=== PATIENT | male | born 1950 | race Hispanic/Latino ===

== ENCOUNTER → 2020-08-10 | Outpatient (CLI) | payer OTHER ==
[~2020-08-10] MED LIST: AEC81 PO; FURO20TA6 PO; GABA-529 PO; HYDR-4068 PO; LISI-617 PO; METF-446 PO; METO25 PO; PRAV40TA3 PO; RIVA20TA PO; SERT25TA5 PO; TYL3 PO
== END | disposition home or self-care (01) ==
LOC: SHCH 11:04
PROVIDERS: ATTEND Internal Medicine Cardiovascular Disease
DX: M79.606 Pain in leg, unspecified (principal)
CPT/HCPCS: 93922

== ENCOUNTER 2023-12-18 05:46 | Observation (INO) | payer MEDICARE ==
[2023-12-14 15:44] LABS: BASOPHILS # (AUTO) 0.06 K/uL (0.00-0.20); BASOPHILS % (AUTO) 0.7 % (0.0-5.0); EOSINOPHILS # (AUTO) 0.29 K/uL (0.00-0.70); EOSINOPHILS % (AUTO) 3.5 % (0.0-8.0); HEMATOCRIT 44.5 % (42-54); IMMATURE GRANULOCYTE ABSOLUTE 0.03 K/uL (0-1); LYMPHOCYTES # (AUTO) 2.4 K/uL (1.0-4.8); LYMPHOCYTES % (AUTO) 28.4 % (21.0-51.0); MEAN CORPUSCULAR HEMOGLOBIN 30.7 pg (27.0-33.0); MEAN CORPUSCULAR HGB CONC 31.9 g/dL (32.0-36.0); MEAN CORPUSCULAR VOLUME 96.1 fL (79-99); MONOCYTES # (AUTO) 0.8 K/uL (0.1-1.0); MONOCYTES % (AUTO) 9.5 % (3.0-13.0); NEUTROPHILS # (AUTO) 4.8 K/uL (1.8-7.7); NEUTROPHILS % (AUTO) 57.5 % (40.0-77.0); PLATELET COUNT (AUTO) 287 K/uL (130-400); RED BLOOD CELL COUNT(AUTO) 4.63 MIL/uL (4.50-6.20); RED CELL DISTRIBUTION WIDTH 14.5 % (11.0-15.5); WHITE BLOOD COUNT (AUTO) 8.4 K/uL (4.8-10.8)
[2023-12-14 15:52] LABS: CREATININE 0.8 mg/dL (0.5-1.5); POTASSIUM 4.4 mmol/L (3.5-5.1)
[2023-12-14 15:53] LABS: INR 0.96 (0.85-1.15); PROTHROMBIN TIME 11.2 SEC (9.6-11.6)
[2023-12-14 15:54] LABS: PARTIAL THROMBOPLASTIN TIME 31.2 SEC (26.3-35.5)
[2023-12-14 17:07] LABS: B-TYPE NATRIURETIC PEPTIDE 51 pg/mL (0-100)
[2023-12-14 17:24] LABS: APPEARANCE,URINE CLEAR (CLEAR); BILIRUBIN,URINE NEGATIVE (NEGATIVE); COLOR,URINE LIGHT-YELLOW (YELLOW); GLUCOSE, URINE (UA) >=1000 mg/dL (NEGATIVE); KETONES,URINE NEGATIVE (NEGATIVE); LEUKOCYTE ESTERASE ,URINE NEGATIVE Leu/uL (NEGATIVE); NITRATE,URINE NEGATIVE (NEGATIVE); OCCULT BLOOD,URINE NEGATIVE (NEGATIVE); PROTEIN,URINE NEGATIVE (NEGATIVE); UROBILINOGEN,URINE 0.2 mg/dL (0.2-1.0)
[2023-12-14 17:25] LABS: ADD UA MICROSCOPIC YES
[2023-12-14 17:47] LABS: MUCUS,URINE RARE LPF (None Seen); RBC,URINE 0-1 /HPF (0-1); WBC,URINE 0-1 /HPF (0-1)
[2023-12-17 08:56] VITALS: BP 141/67; PULSE 56; RESP 17
[~2023-12-18] VITALS: Ht 167.6 cm; Wt 92.4 kg
[2023-12-18] VITALS (47 sets, daily range): BP systolic 73–138; BP diastolic 36–63; PULSE 60–108; RESP 13–27; O2SAT 95–97
[~2023-12-18 05:46] MED LIST changes: +ACET-2113 PO; +ATOR40TA69 PO; +EMPA10TA PO; +EZET10TA48 PO; +FOLIC ACID PO; +FURO20TA4 PO; -FURO20TA6 PO; -GABA-529 PO; -HYDR-4068 PO; +INSU3INS9 SQ; -LISI-617 PO; +METH2.5T6 PO; -METO25 PO; +OMEP20CA12 PO; +OXYB10TA30 PO; -PRAV40TA3 PO; +SACU1TAB PO; -SERT25TA5 PO; +SPIR25TA6 PO; +TAMS-1 PO; +TRAM50TA4 PO; -TYL3 PO
[2023-12-18] MEDS ORDERED: 0.9%NACL 1000ML 1,000 ML IV ONE (06:54)
[2023-12-18] MEDS ORDERED: MIDAZOLAM HCL 1 MG/ML 2ML VIAL ONE (07:12)
[2023-12-18] MEDS ORDERED: IOHEXOL 350 MG/ML 100ML INFUS..BTL IV ONE (07:12)
[2023-12-18] MEDS ORDERED: FENTANYL CITRATE PF 50 MCG/1 ML 2ML VIAL ONE (07:12)
[2023-12-18] MEDS ORDERED: LIDOCAINE HCL 400MG/20ML VIAL ONE (07:12)
[2023-12-18] MEDS ORDERED: HEPARIN 10,000 UNIT/10ML (1,000 UNIT/ML) VIAL ONE (07:13)
[2023-12-18] MEDS ORDERED: NITROGLYCERIN 50MG VIAL ONE (07:13)
[2023-12-18] MEDS ORDERED: SODIUM BICARB 50MEQ 50ML VIAL 50 ML ONE (07:29)
[2023-12-18] MEDS ORDERED: IOHEXOL-350 50ML VIAL IV ONE (08:05)
[2023-12-18] MEDS ORDERED: TRAMADOL HCL 50 MG TABLET PO PRN (09:30)
[2023-12-18] MEDS ORDERED: PHARMACY COMMUNICATION MISC SCH (09:30)
[2023-12-18] MEDS ORDERED: ACETAMINOPHEN 325 MG TAB PO PRN (09:30)
[2023-12-18] MEDS ORDERED: ACETAMINOPHEN 650 MG PO PRN (09:30)
[2023-12-18] MEDS ORDERED: FUROSEMIDE 20 MG TABLET PO PRN (09:30)
[2023-12-18] MEDS ORDERED: 0.9%NACL 1000ML 1,000 ML IV SCH (09:30)
[2023-12-18] MEDS ORDERED: NOREPINEPHRIN 4MG/NS 250ML 250 ML IV ONE (11:13)
[2023-12-18 11:38] LABS: HEMATOCRIT 23.7 % (42-54); MEAN CORPUSCULAR HEMOGLOBIN 30.5 pg (27.0-33.0); MEAN CORPUSCULAR HGB CONC 29.1 g/dL (32.0-36.0); MEAN CORPUSCULAR VOLUME 104.9 fL (79-99); PLATELET COUNT (AUTO) 115 K/uL (130-400); RED BLOOD CELL COUNT(AUTO) 2.26 MIL/uL (4.50-6.20); RED CELL DISTRIBUTION WIDTH 14.1 % (11.0-15.5); WHITE BLOOD COUNT (AUTO) 6.2 K/uL (4.8-10.8)
[2023-12-18] MEDS ORDERED: MAGNESIUM CITRATE 296 ML SOLUTION PO ONE (12:30)
[2023-12-18] MEDS ORDERED: GLUCAGON 1MG KIT 1 MG ML IM PRN (16:00)
[2023-12-18] MEDS ORDERED: DEXTROSE 50%-WATER 50 ML DISP.SYRIN IV PRN (16:00)
[2023-12-18] MEDS: INSULIN HUMULIN R 100 UNIT/ML 3ML SQ SCH ×2 (16:30→21:00)
[2023-12-18] MEDS: SACUBITRIL/VALSARTAN 1 EACH TABLET PO SCH (20:55)
[2023-12-18] MEDS: METFORMIN HCL 500 MG TABLET PO SCH (20:55)
[2023-12-18] MEDS ORDERED: TAMSULOSIN HCL 0.4 MG CAP.ER.24H PO SCH (21:00)
[2023-12-18] MEDS ORDERED: EZETIMIBE 10 MG TAB PO SCH (21:00)
[2023-12-18] MEDS ORDERED: NON-FORMULARY MEDICATION 1 EACH (Metformin HCl 1,000 MG) PO SCH (21:00)
[2023-12-18] MEDS ORDERED: ATORVASTATIN 40 MG TABLET PO SCH (21:00)
[2023-12-19] VITALS (31 sets, daily range): BP systolic 91–126; BP diastolic 49–68; PULSE 61–85; RESP 15–33; O2SAT 93–96
[2023-12-19] MEDS: INSULIN HUMULIN R 100 UNIT/ML 3ML SQ SCH ×3 (06:50→16:30)
[2023-12-19] MEDS: METFORMIN HCL 500 MG TABLET PO SCH ×2 (08:57→16:42)
[2023-12-19] MEDS ORDERED: NON-FORMULARY MEDICATION 1 EACH (Omeprazole 20 MG) PO SCH (09:00)
[2023-12-19] MEDS ORDERED: NON-FORMULARY MEDICATION 1 EACH (Oxybutynin Chloride (Oxybutynin Chloride ER) 10 MG) PO SCH (09:00)
[2023-12-19] MEDS ORDERED: NON-FORMULARY MEDICATION 1 EACH ([Folic Acid] 1 MG) PO SCH (09:00)
[2023-12-19] MEDS ORDERED: PANTOPRAZOLE 40 MG TAB DR PO SCH (09:00)
[2023-12-19] MEDS ORDERED: FOLIC ACID 1 MG TABLET PO SCH (09:00)
[2023-12-19] MEDS ORDERED: SPIRONOLACTONE 25 MG TAB PO SCH (09:00)
[2023-12-19] MEDS ORDERED: OXYBUTYNIN CHLORIDE 5 MG TABLET PO SCH (09:00)
[2023-12-19] MEDS ORDERED: EMPAGLIFLOZIN 10MG TABLET PO SCH (09:00)
[2023-12-19] MEDS ORDERED: ASPIRIN 81 MG EC TAB PO SCH (09:00)
[2023-12-19] MEDS: SACUBITRIL/VALSARTAN 1 EACH TABLET PO SCH (09:22)
[2023-12-25] MEDS ORDERED: METHOTREXATE SODIUM 2.5 MG TABLET PO SCH (09:00)
== END 2023-12-19 18:35 | disposition home or self-care (01) ==
LOC: DAH 05:46 → INTOOBSV 05:47 → OBSVTOIN 05:47 → DAHIP 05:47 → DAH 05:47 → 2AH 09:57 → 2CV 11:30 → EDSTATUS 15:00
PROVIDERS: ADMIT Internal Medicine Cardiovascular Disease; ATTEND Internal Medicine Cardiovascular Disease
DX: I25.810 Atherosclerosis of coronary artery bypass graft(s) without angina pectoris (principal); E11.9 Type 2 diabetes mellitus without complications; I11.0 Hypertensive heart disease with heart failure; I50.22 Chronic systolic (congestive) heart failure; I48.91 Unspecified atrial fibrillation; N40.0 Benign prostatic hyperplasia without lower urinary tract symptoms; K21.9 Gastro-esophageal reflux disease without esophagitis; Z95.1 Presence of aortocoronary bypass graft; Z79.82 Long term (current) use of aspirin
CPT/HCPCS: 80048; 83880; 85025; 85610; 85730; 81001; 36415 ×2; 71045; 93005; 93461; 96374; 85027; 85014; 85018; 82948 ×8; 74176; C1769; C1894 ×4; C1760; Q9965 ×2; G0378 ×34; J3490 ×4; J7030; J1644; Q9967 ×2; A4215; A4223 ×3; A4222; A4221; A4663; A4216; A4606; 93459; 96365; J2250; J3010